=== PATIENT | female | born 1995 | race Caucasian/White ===

== ENCOUNTER 2018-06-04 23:00 | Inpatient (IN) | payer OTHER ==
[~2018-06-04] VITALS: Ht 158.8 cm; Wt 62.3 kg
[~2018-06-04 23:00] MED LIST: ASPI1TAB2 PO; PREN1TAB49 PO
[2018-06-04 23:40] VITALS: BP 113/70; PULSE 83; RESP 18
[2018-06-05] MEDS ORDERED: LACTATED RINGER'S 1,000 ML IV PRN (00:25)
[2018-06-05] MEDS ORDERED: METHYLERGONOVINE 0.2 MG INJ IM PRN ×2 (00:30→13:30)
[2018-06-05] MEDS ORDERED: IBUPROFEN 600 MG TAB PO PRN (00:30)
[2018-06-05] MEDS ORDERED: LIDOCAINE 1% (MPF) 30 ML INJ INJ PRN (00:30)
[2018-06-05] MEDS ORDERED: OXYTOCIN 30 UNITS/LR 500 ML IV PRN ×2 (00:30→13:30)
[2018-06-05] MEDS ORDERED: CARBOPROST 250 MCG INJ IM PRN ×2 (00:30→13:30)
[2018-06-05] MEDS ORDERED: MISOPROSTOL 200 MCG TAB PR PRN ×2 (00:30→13:30)
[2018-06-05] MEDS ORDERED: BUTORPHANOL 2 MG INJ IV PRN (00:30)
[2018-06-05] MEDS ORDERED: OXYTOCIN 30 UNITS/LR 500 ML IV SCH ×3 (00:30→13:20)
[2018-06-05] MEDS: LACTATED RINGER'S 1,000 ML IV SCH ×2 (01:19→04:19)
--- NOTE | 2018-06-05 02:01 | PREAC ---
Date/Time of Note Date/Time of Note DATE: 06/05/18 TIME: 02:01 Anesthesia Eval and Record Evaluation Time Pre-Procedure Interview DATE: 06/05/18 TIME: 02:01 Age 23 Sex female NPO: 8 hrs Preoperative diagnosis labor pain Planned procedure labor epidural Past Medical History Past Medical History: None Surgery & Anesthesia Issues No known issue Meds Anticoagulation: No Beta Lalito within 24 hr: No Reason Beta Lalito not given: Pt. not on B-Lalito Reported Medications Vits W-Ca,Fe,Fa(<1MG) () 1 Tab Tablet, 1 TAB PO 02/29/12 Discontinued Scripts Tyvkcch-Erlefqihvzgpw-Rrkydqvi* (Excedrin Extra Strength*) 250-250-65 Mg Tablet, 1 TAB PO Q6H PRN for PAIN, #30 TAB Prov:CHUY ANDERSON PA-C 11/26/15 Current Medications Lactated Ringer's 1,000 ml @ 125 mls/hr Q8H IV Last administered on 06/05/18at 01:19; Admin Dose 125 MLS/HR; Start 06/05/18 at 00:25 Butorphanol Tartrate (Stadol) 2 mg Q2H PRN IV PAIN; Start 06/05/18 at 00:30 Lidocaine (Xylocaine 1% (Mpf)) 30 ml ONCE PRN INJ EPISIOTOMY; Start 06/05/18 at 00:30 Oxytocin/Lactated Ringer's 500 ml @ 500 mls/hr ONCE POST IV ; Start 06/05/18 at 00:30 Oxytocin/Lactated Ringer's 500 ml @ 125 mls/hr POST IV ; Start 06/05/18 at 00:30 Ibuprofen (Motrin) 600 mg ONCE PRN PO PAIN LEVEL 1-5; Start 06/05/18 at 00:30 Lactated Ringer's 1,000 ml @ 2,000 mls/hr Q30M PRN IV ANESTHESIA Last administered on 06/05/18at 01:50; Admin Dose 2,000 MLS/HR; Start 06/05/18 at 00:25 Oxytocin/Lactated Ringer's 500 ml @ 0 mls/hr ONCE PRN IV VAGINAL BLEEDING; Start 06/05/18 at 00:30 Methylergonovine Maleate (Methergine) 0.2 mg ONCE PRN IM VAGINAL BLEEDING; S tart 06/05/18 at 00:30 Carboprost Tromethamine (Hemabate) 250 mcg ONCE PRN IM VAGINAL BLEEDING; Start 06/05/18 at 00:30 Misoprostol (Cytotec) 1,000 mcg ONCE PRN IL VAGINAL BLEEDING; Start 06/05/18 at 00:30 Meds reviewed: Yes Allergies Coded Allergies: No Known Allergies (Verified Allergy, Unknown, 06/04/18) Allergies Reviewed: Yes Labs/Studies Labs Reviewed: Reviewed by anesthesiologist Result Diagram: 06/05/18 0100 Laboratory Tests 06/05/18 01:00 test: Positive Pre-procedure Exam Last vitals Vital Signs Date Temp Pulse Resp B/P (MAP) Pulse Ox O2 O2 Flow FiO2 Time Delivery Rate 06/04/18 97.8 83 18 113/70 Room Air 23:40 (84) Airway: Adequate mouth opening, Adequate thyromental dist Mallampati: Mallampati III Teeth: Normal Lung: Normal Heart: Normal ASA Physical Status ASA physical status: 2 Emergency: None Planned Anesthetic Neuraxial: Epidural Planned Pain Management Epidural, Parenteral pain med, Other neuraxial med Pre-operative Attestations Prior to commencing anesthesia and surgery, the patient was re-evaluated, there was verification of: *The patient's identity *The results of appropriate recent lab work and preoperative vital signs *The above evaluation not changing prior to induction *Anesthetic plan, risk benefits, alternative and complications discussed with patient/family; questions answered; patient/family understands, accepts and wishes to proceed. BETTY TRAN MD Jun 05, 2018 02:01
--- NOTE | 2018-06-05 02:02 | TRIAGE ---
OB Triage Datetime Report Generated by CPN: 06/05/2018 02:01 Datetime: 06/05/2018 01:19 Stage of : Labor Labor Evaluation Frequency: 2-5 Monitor Mode: External Duration (sec)2399: 60 Quality: Moderate Pattern: Normal: <= 5 Contractions in 10 Minutes Resting Tone Enlow: Relaxed Heart Rate FHR Baseline Rate: 130 Monitor Mode: External US FHR Baseline Changes: No Baseline Change Variability: Moderate 6-25 bpm Accelerations: 15X15 Decelerations: None Category: Category I Vaginal Exam Dilatation (cms): 4.0 Effacement (%): 90 Station: -1 Exam By: Margie Reynolds Membrane Status: Intact Vaginal Bleeding: Normal Show Cervix, Consistency: Soft Cervix, Position: Midposition Presentation 'A': Cephalic Datetime: 06/05/2018 00:06 Stage of : OB Triage Labor Evaluation Frequency: 2-6 Monitor Mode: External Duration (sec)2399: 60 Quality: Moderate Pattern: Normal: <= 5 Contractions in 10 Minutes Resting Tone Enlow: Relaxed Heart Rate FHR Baseline Rate: 130 Monitor Mode: External US FHR Baseline Changes: No Baseline Change Variability: Moderate 6-25 bpm Accelerations: 15X15 Decelerations: None Category: Category I Pain Presence: Intermittent Pain Type: Contraction Pain Location: Abdomen Datetime: 06/04/2018 23:45 Time of Arrival: 06/04/2018 22:50 EGA: 38.1 Arrived By: Wheelchair Arrived From: Home Chief Complaint: c/o ucs and spotting Movement: Present Contractions: Regular Time Contractions Began: 06/04/2018 16:00 Contractions: q5 Rupture of Membranes: Denies Vaginal Bleeding: Scant Vaginal Discharge: Present Recent Sexual Intercouse: Denies Abdominal Trauma: Not Applicable Patient Complaints: Contractions Time Provider Notified: 06/05/2018 00:06 Provider Notified: Dr Callahan Initial Plan: EFM,SVE Datetime: 06/04/2018 23:25 Vaginal Exam Dilatation (cms): 3.0 Effacement (%): 70 Station: -1 Exam By: E Rodolfo Membrane Status: Intact Vaginal Bleeding: Scant Cervix, Consistency: Soft Cervix, Position: Posterior Presentation 'A': Cephalic Datetime: 06/04/2018 23:21 Stage of : OB Triage Maternal Assessment Level of Consciousness: Fully Conscious Headache: Denies Blurred Vision: No Respiratory Effort: Unlabored Nausea/Vomiting: Denies RUQ Epigastric Pain: Denies Facial Edema: None Monitor Mode: External Resting Tone Enlow: Relaxed Heart Rate FHR Baseline Rate: 130 Monitor Mode: External US Pain Assessment Pain Scale: 7 Pain Presence: Intermittent Pain Type: Contraction Pain Location: Abdomen
[2018-06-05] MEDS ORDERED: NALOXONE (0.4 MG/ML) INJ IV PRN (02:30)
[2018-06-05] MEDS ORDERED: ZOLPIDEM 5 MG TAB PO PRN ×2 (02:30→13:30)
[2018-06-05] MEDS ORDERED: KETOROLAC 30 MG INJ IV PRN (02:30)
[2018-06-05] MEDS ORDERED: ONDANSETRON 4 MG INJ IV PRN (02:30)
[2018-06-05] MEDS ORDERED: FENTAnyl 2MCG/ML-ROPIV 0.2% 100 ML BAG EPI SCH (02:30)
[2018-06-05] MEDS ORDERED: HYDROmorphONE 0.5 MG/0.5 ML SYG IV PRN ×2 (02:30)
[2018-06-05] MEDS ORDERED: DIPHENHYDRAMINE 50 MG INJ IV PRN (02:30)
[2018-06-05] MEDS ORDERED: MINERAL OIL LIGHT 10 ML VIAL TOP ONE (09:30)
--- NOTE | 2018-06-05 11:35 | HP ---
Date/Time of Note Date/Time of Note DATE: 06/05/18 TIME: 11:31 OB - History Hx of Present Free Text/Dictation in active labor Care: Good Care Ultrasounds: Normal mid trimester US Obstetrical Complications: None Medical Complications: None Past Family/Social History * Past Medical, Surgical, Family and Obstetric Histories reviewed from chart. OB Admission Exam Vital Signs Vital Signs Vital Signs Date Temp Pulse Resp B/P (MAP) Pulse Ox O2 O2 Flow FiO2 Time Delivery Rate 06/04/18 97.8 83 18 113/70 Room Air 23:40 (84) Physical Exam HEENT: WNL Heart: Rhythm Normal Lungs: Clear, Equal Abdomen: WNL Extremities: Normal Reflexes: Normal Cervical Dilatation: 10cm Effacement: 100% Station: +3 Membranes: Ruptured Amniotic Fluid: Clear Heart Rate: 130's Accelerations: Accelerations Present Decelerations: No Decelerations Varibility: Moderate Contractions on Admission: 6-10 Minutes Apart Intensity: Moderate Last 72 hours Lab Results CBC & BMP 06/05/18 01:00 OB Assessment/Plan Reason for admission: active labor Plan: Expectant Management ALBERTO LAM MD Jun 05, 2018 11:35
--- NOTE | 2018-06-05 11:36 | LDN ---
Date/Time of Note Date/Time of Note DATE: 06/05/18 TIME: 11:35 Delivery Summary Placenta Delivered: Spontaneously Meconium: none Episiotomy: No Perineal laceration: 1 Anesthesia type: Epidural Estimated blood loss: 300 Sponge & Needle done & correct: Yes All needle counts correct: Yes Any foreign bodies felt in the: No ALBERTO LAM MD Jun 05, 2018 11:36
[2018-06-05 13:19] VITALS: BP 122/66; PULSE 68; RESP 14
[2018-06-05] MEDS ORDERED: DIPHENHYDRAMINE 25 MG CAP PO PRN (13:30)
[2018-06-05] MEDS ORDERED: HYDROCODONE/APAP (5/325) TAB PO PRN (13:30)
[2018-06-05] MEDS ORDERED: LANOLIN HPA 1 PKT TOP PRN (13:30)
[2018-06-05] MEDS ORDERED: WITCH HAZEL/GLYCERIN PAD PR PRN (13:30)
[2018-06-05] MEDS ORDERED: ACETAMINOPHEN 325 MG TAB PO PRN (13:30)
[2018-06-05] MEDS ORDERED: BENZOCAINE 20% 56 ML SPRAY TOP PRN (13:30)
[2018-06-05] MEDS: IBUPROFEN 800 MG TAB PO SCH ×3 (13:39→23:59)
[2018-06-05] MEDS: SENNA/DOCUSATE NA (8.6MG/50MG) TAB PO PRN (13:39)
[2018-06-05] MEDS: MAGNESIUM HYDROXIDE 30ML CUP PO PRN (13:39)
[2018-06-05 16:19] VITALS: BP 122/65; PULSE 69; RESP 17
[2018-06-05] MEDS: LACTATED RINGER'S 1,000 ML IV* SCH ×2 (19:47→21:20)
[2018-06-05 19:50] VITALS: BP 107/62; PULSE 70; RESP 18
[2018-06-06 04:20] VITALS: BP 100/52; PULSE 68; RESP 18
[2018-06-06] MEDS: LACTATED RINGER'S 1,000 ML IV* SCH (05:20)
[2018-06-06] MEDS: IBUPROFEN 800 MG TAB PO SCH ×3 (05:58→17:39)
[2018-06-06 08:30] VITALS: BP 93/50; PULSE 60; RESP 18
[2018-06-06] MEDS: SENNA/DOCUSATE NA (8.6MG/50MG) TAB PO PRN (08:38)
[2018-06-06] MEDS: MAGNESIUM HYDROXIDE 30ML CUP PO PRN (08:38)
[2018-06-06 15:13] VITALS: BP 122/75; PULSE 77; RESP 16
--- NOTE | 2018-06-06 17:18 | DS ---
Date/Time of Note Date/Time of Note DATE: 06/06/18 TIME: 17:17 Discharge Summary Admission/Discharge Info Admit Date/Time Jun 05, 2018 at 00:06 Discharge Date/Time Discharge Diagnosis term Patient Condition: Stable Hospital Course unremarkable Home Meds Reported Medications Vits W-Ca,Fe,Fa(<1MG) () 1 Tab Tablet, 1 TAB PO 02/29/12 Discontinued Scripts Yidmtsr-Oufxeogwmpgnz-Hidzordx* (Excedrin Extra Strength*) 250-250-65 Mg Tablet, 1 TAB PO Q6H PRN for PAIN, #30 TAB Prov:CHUY ANDERSON PA-C 11/26/15 Primary Care Provider Not On Staff Doctor Pending Labs Laboratory Tests Test 06/06/18 06:45 06/06/18 07:11 Lab Scanned Report [facility] [id number] White Blood Count 16.1 10^3/ul (4.8-10.8) Red Blood Count 3.69 10^6/ul (4.20-5.40) Hemoglobin 11.1 g/dl (12.0-16.0) Hematocrit 33.6 % (37.0-47.0) Mean Corpuscular Volume 91.1 fl (82.0-101.0) Mean Corpuscular Hemoglobin 30.1 pg (29.0-33.0) Mean Corpuscular 33.0 g/dl (32.0-37.0) Hemoglobin Concent Red Cell Distribution Width 14.1 % (11.5-14.5) Platelet Count 235 10^3/UL (140-415) Mean Platelet Volume 10.7 fl (7.4-10.4) Immature Granulocytes % 0.600 % (0.001-0.429) Neutrophils % 75.9 % (39.0-77.0) Lymphocytes % 14.6 % (15.0-51.0) Monocytes % 8.0 % (0.0-11.0) Eosinophils % 0.7 % (0.0-7.0) Basophils % 0.2 % (0.0-2.0) Nucleated Red Blood Cells % 0.0 /100WBC (0.0-0.0) Immature Granulocytes # 0.100 10^3/ul (0.0-0.031) Neutrophils # 12.2 10^3/ul (1.6-7.5) Lymphocytes # 2.4 10^3/ul (0.8-2.9) Monocytes # 1.3 10^3/ul (0.3-0.9) Eosinophils # 0.1 10^3/ul (0.0-0.5) Basophils # 0.0 10^3/ul (0.0-0.1) Nucleated Red Blood Cells # 0.0 10^3/ul (0.0-0.0) ALBERTO LAM MD Jun 06, 2018 17:18
--- NOTE | 2018-06-06 17:18 | QN ---
Documentation Comment doing well vss abd soft d/c home next am ALBERTO LAM MD Jun 06, 2018 17:18
[2018-06-06 20:00] VITALS: BP 103/65; PULSE 82; RESP 18
[2018-06-07] MEDS: LACTATED RINGER'S 1,000 ML IV* SCH ×3 (00:17→06:46)
--- NOTE | 2018-06-07 02:18 | PAC ---
Date/Time of Note Date/Time of Note DATE: 06/07/18 TIME: 02:18 Post-Anesthesia Notes Post-Anesthesia Note Last documented vital signs Vital Signs Date Temp Pulse Resp B/P (MAP) Pulse Ox O2 O2 Flow FiO2 Time Delivery Rate 06/06/18 98.2 82 18 103/65 Room Air 20:00 (78) Activity: WNL Respiratory function: WNL Cardiovascular function: WNL Mental status: Baseline Pain reasonably controlled: Yes Hydration appropriate: Yes Nausea/Vomiting absent: Yes BETTY TRAN MD Jun 07, 2018 02:18
[2018-06-07 04:15] VITALS: BP 109/67; PULSE 66; RESP 19
[2018-06-07] MEDS: IBUPROFEN 800 MG TAB PO SCH ×3 (06:00→11:59)
[2018-06-07 08:00] VITALS: BP 109/63; PULSE 75; RESP 18
[2018-06-07] MEDS ORDERED: DIPHTH/TET/ACEL PERTUSS (ADULT) 0.5 ML VIAL IM* ONE (09:00)
[2018-06-07] MEDS ORDERED: VARICELLA VACCINE LIVE/PF 1,350 UNIT/0.5 ML ML SC* ONE (09:00)
[2018-06-07] MEDS ORDERED: MEASLES,MUMPS,RUBELLA VACCINE INJ SC* ONE (09:00)
== END 2018-06-07 12:40 | disposition home or self-care (01) | DRG 807 ==
LOC: OBT 23:00 → L-D 23:01 → OBT 06-05 00:06 → L-D 06-05 00:06 → PP1 06-05 13:02
PROVIDERS: ADMIT Obstetrics & Gynecology; ATTEND Obstetrics & Gynecology
PROC: 10E0XZZ Delivery of Products of Conception, External Approach (ICD-10-PCS; principal; 2018-06-05)
PROC: 0HQ9XZZ Repair Perineum Skin, External Approach (ICD-10-PCS; 2018-06-05)
PROC: 4A1HXCZ Monitoring of Products of Conception, Cardiac Rate, External Approach (ICD-10-PCS; 2018-06-05)
DX: O70.0 First degree perineal laceration during delivery (principal); Z37.0 Single live birth; Z3A.38 38 weeks gestation of pregnancy
CPT/HCPCS: 85025; 85610; 85730; 86592; 86850; 86900; 86901; 87340; G0463; J2590; J3010; J7120